=== PATIENT | female | born 1965 ===

== ENCOUNTER 2019-08-05 17:51 | Emergency (ER) | payer SELFPAY ==
--- NOTE | 2019-08-05 18:29 | RAD ---
XR Ankle Rt 3 View STANDARD History: Fall. Pain Comparison: None. Findings: Minimally distracted distal fibular tip fracture. Market abnormality or soft tissue swellin g. There is also a fracture of the fifth metatarsal proximal tuberosity. Large plantar calcaneal spur. Impression: 1. Minimally distracted distal fingertip fracture. 2. 3-4 mm retracted fracture base of the fifth metatarsal proximal tuberosity.
[2019-08-05] MEDS ORDERED: Ibuprofen 200 MG TAB ONE (18:32)
== END 2019-08-05 19:04 | disposition home or self-care (01) ==
LOC: ERS 17:51
DX: S92.351A Displaced fracture of fifth metatarsal bone, right foot, initial encounter for closed fracture (principal); S82.831A Other fracture of upper and lower end of right fibula, initial encounter for closed fracture; E03.9 Hypothyroidism, unspecified; Z79.899 Other long term (current) drug therapy; W10.1XXA Fall (on)(from) sidewalk curb, initial encounter